=== PATIENT | male | born 1975 | race Asian ===

== ENCOUNTER 2017-07-23 11:21 | Emergency (ER) | payer OTHER ==
[~2017-07-23] VITALS: Ht 170.2 cm; Wt 80.0 kg
[2017-07-23] MEDS ORDERED: KETOROLAC 30 MG/1 ML ONE (11:51)
[2017-07-23 12:00] LABS: HEMATOCRIT 45.3 % (39.2-51.8); HEMOGLOBIN 15.6 g/dL (13.7-18.0); WHITE BLOOD COUNT 5.8 x10^3/uL (3.4-10)
[2017-07-23] MEDS ORDERED: KETOROLAC 30 MG/1 ML IM ONE (12:00)
[2017-07-23 12:09] LABS: BLOOD UREA NITROGEN 17 mg/dL (7-18)
[2017-07-23 12:16] LABS: IS PT STATUS REG ER OR PRE ER? YES
[2017-07-23 13:17] VITALS: BP 112/67
== END 2017-07-23 13:20 | disposition home or self-care (01) ==
LOC: ED 12:33
DX: R07.2 Precordial pain (principal); M54.12 Radiculopathy, cervical region
CPT/HCPCS: 36415; 71010; 72050; 80048; 82040; 84484; 85025; 93005; 96372; 99285; J1885